=== PATIENT | female | born 1960 | race Caucasian/White ===

== ENCOUNTER 2025-04-21 11:36 | Inpatient (IN) | payer BC ==
[~2025-04-21] VITALS: Ht 170.2 cm; Wt 66.4 kg
[~2025-04-21 11:36] MED LIST: APIX5TAB3 PO
[2025-04-21] MEDS ORDERED: ASPI81TA52 PO (11:57)
[2025-04-21] MEDS: HYDROcodone/acetaminophen 5mg/325mg tablet PO ONE (12:05)
[2025-04-21] MEDS: ondansetron/PF 4mg/2ml inj IV ONE (12:14)
[2025-04-21] MEDS: morphine 4 MG/ML inj SYRINge IV ONE (12:15)
--- NOTE | 2025-04-21 12:54 | Physician Documentation ---
History of Present Illness ~ Chief Complaint: Mechanical Fall Stated Complaint: FALL Time Seen by MD: 11:49 Primary Medical Doctor: None Mode of Arrival: EMS HPI This is a 64-year-old female who presents for evaluation of potential traumatic injuries sustained a mechanical ground level fall. She was helping somebody to move furniture, has been making very small steps backwards, tripped over a lip on the sidewalk and fell on her left side. She reports an immediate onset sharp nonradiating pain in her left hip, worse with any range of motion and palpation, unable to bear weight. This never happened in the past. The particular palliating factors other than position of comfort. Did not attempt to treat her symptoms. Ice pack provided by the BLS crew does not really help. Denies head strike. Denies loss of consciousness. Denies any blood thinners. Denies any other symptoms such as chest pain or difficulty breathing. Tetanus within 5 Years?: No Medication Reconciliation Allergies: Coded Allergies: No Known Allergies (Unverified , 01/14/21) Scheduled Aspirin (Aspirin EC), 1 TAB PO DAILY, (Reported) Discontinued Medications Apixaban (Eliquis), 1 TAB PO Q12H Discontinued Reason: patient no longer taking Past Medical History Past Medical History: No Pertinent History Past Surgical History: noncontributory Alcohol Use: None Drug Use: none Review of Systems ROS 10 point review of systems was performed and unless noted above in HPI is negative for acute process/complaint. Physical Exam Vital Signs: Temperature: 97.8, Source: Oral, Heart Rate: 65, Respiratory Rate: 15, BP: 116/61, Pulse Oximetry: 100, Weight: 66.360 Physical Exam GENERAL: Awake, alert, oriented, GCS 15, no apparent distress, non-toxic appearing, answers questions, follows commands appropriately. Examined immediately upon arrival in bed 15. HEENT: Atraumatic, normocephalic, pupils equal, extraocular muscles intact, sclerae anicteric, mucus membranes moist, oropharynx is clear, no stridor. NECK: supple, full active range of motion, trachea midline, no thyromegaly, no lymphadenopathy, no JVD. CARDIOVASCULAR: regular rate/rhythm, no murmurs/gallops/rubs, Pulses are 2+ in all extremities and symmetric. Capillary refill less than 2 seconds. PULMONARY: Nonlabored, good air movement ,no respiratory distress, speaking in full sentences, clear to auscultation bilaterally, no wheezing, no ronchi, no rales, no accessory muscle use. GASTROINTESTINAL: Soft, non-tender, non-distended, normal active bowel sounds, no organomegaly, no pulsatile masses, no CVA tenderness. NEUROLOGIC: Lucid with normal mental status. Normal facial symmetry. Moves all extremities symmetrically and with purpose. No truncal ataxia. Speech is fluid without evidence of dysarthria or aphasia, no focal deficits appreciated. MUSCULOSKELETAL: There is full range of motion of all extremities. There is no joint pain or joint swelling or joint erythema. There is no muscle pain or tenderness or swelling. EXTREMITIES: warm, well-perfused, no cyanosis, no clubbing, no edema, no acute deformities. Skin: warm, dry, no rashes or lesions, no jaundice, no petechiae orpurpura. No ecchymosis. PSYCHIATRIC: Normal affect, normal insight, normal concentration. Focused exam: No obvious shortening of rotation, tender to palpation over the greater trochanter Progress Results/Orders Results/Orders Orders - HENRY DAVID DO Hip Unilateral 2 Views (04/21/25 11:49) Completed Orders - HENRY DAVID DO Hip Unilateral 2 Views (04/21/25 11:49) Hydrocodone/Apap 5/325mg Tab ([place] 5/32 (04/21/25 11:50) Morphine 4mg/Ml Inj. (Morphine Inj.) (04/21/25 12:10) Ondansetron Inj. (Zofran 4mg/2ml Vial) (04/21/25 12:10) Hydromorphone 1 Mg/Ml/Pf (Dilaudid Inj.) (04/21/25 14:30) Medications Received in ER Medications (Trade) Dose Ordered Sig/Romina Route PRN Reason Start Time Stop Time Status Last Admin Dose Admin (morphine inj.) 4 mg ONCE ONCE IV 04/21/25 12:10 04/21/25 12:11 DC 04/21/25 12:15 4 MG (Zofran 4mg/2ml vial) 4 mg ONCE ONCE IV 04/21/25 12:10 04/21/25 12:11 DC 04/21/25 12:14 4 MG (Dilaudid inj.) 1 mg ONCE ONCE IV 04/21/25 14:30 04/21/25 14:31 DC 04/21/25 14:42 1 MG Vital Signs 04/21/25 04/21/25 04/21/25 04/21/25 11:45 11:50 12:15 12:22 Temp 97.8 Pulse 70 65 Resp 15 15 15 15 B/P (MAP) 110/70 116/61 (79) Pulse Ox 97 100 04/21/25 04/21/25 04/21/25 13:14 13:17 14:42 Pulse 67 Resp 15 15 15 B/P (MAP) 113/62 (79) Pulse Ox 95 Medical Decision Making Findings Facility Status: ED Holds, RME process The plan was discussed with the patient, who demonstrates clear understanding of the plan and is in agreement with the plan unless otherwise noted in the chart. All questions have been answered, all concerns were addressed unless otherwise documented. I was available throughout their ED stay for frequent reassessment and questions. Differential Diagnoses (considered and possible or likely): [Ground level fall, acute traumatic pain, left hip contusion versus fracture versus dislocation] ??Differential Diagnoses (considered and unlikely, not requiring evaluation currently): [No evidence of neurovascular injury.] MDM Data Please see HPI for the following: Independent Historians and external Records Review. Historian: [Patient] Independent Historians: ?[EMS] Medication Management: [Reviewed medication list] Social History and determinants: [Reviewed] Please see the body of the note for the following: Any independent interpretations of ECG, imaging studies. All vitals signs/haemodynamics, ordered tests were independently reviewed and interpreted by myself. Nursing triage complaint and vitals reviewed, additional nursing notes were reviewed as available and I agree unless otherwise noted or documented in contradiction in the chart Vital Signs: Independently reviewed Labs: Independently interpreted Imaging: Independently interpreted Old Medical Records: Independently reviewed, see HPI for relevant summary and information Pulse Oximetry: [100%] interpreted as [normal on room air] by me [Allergist/Immunologist Physician: [Regular Rate, Regular rhythm, no ectopy, NSR] reviewed and interpreted by me] Additionally notably showing: [X-ray shows subtrochanteric fracture on the left side.] Tests considered but not ordered include: [Initially did not considerably work, however given the fracture we will obtain some preop labs and EKG] Social Determinants of Health Impact: [place] [facility] [place] to healthcare due to below par ratio of patient to medical providers. [] Comorbid Conditions Impacting Present Evaluation and Care/Treatment: [None] Management Discussions with other Healthcare Providers: [Dr. Zuluaga, he will see patient Hospitalist regarding admission] Treatment and Disposition Medication Management (Given or considered): [Pain management]. See EMR for details Consideration for Hospitalization/Escalation/Deescalation of Care: Admission for observation has been considered, and is necessary for further management of her left hip fracture ?ED Course:?[Eventually the pain was well-controlled.] ?Shared decision making:?[] Code status:?FULL Please see the full Electronic Medical Record for full details of nursing documentation, medications list, other records of complete past medical history and conditions, vital signs, laboratory studies, and any radiologic study interpretations by radiologists. Portions of this note were completed using [employer] dictation software and as a result there may exist minor errors in spelling. I have reviewed elements of past family and social history and agree as included in note. Departure Disposition: ADMITTED INPATIENT Admitted to Inpatient Unit: to hospitalist Impression: Primary Impression: Ground-level fall Additional Impressions: Acute traumatic pain Closed left hip fracture Condition: Improved Referrals: NO PRIMARY CARE PROVIDER (PCP) Signature Scribe Signature: No scribe Attestation: This note accurately reflects clinical decisions, work performed by myself, DO FRANKIE Orozco NICHOLAS M DO Apr 21, 2025 12:54
--- NOTE | 2025-04-21 13:28 | RADIOLOGY REPORT ---
CLINICAL INDICATION: fall, L hip pain TECHNIQUE: DI HIP UNILATERAL 2 VIEWS Comparison: None FINDINGS/IMPRESSION: : Displaced and angulated fracture of the proximal left subtrochanteric femur. There is possible extens ion of fracture into the lesser trochanter. Moderate degenerative changes of the right hip.
--- NOTE | 2025-04-21 15:29 | ELECTROCARDIOGRAPH REPORT ---
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 Tutu Almazan Measurements Intervals [place] Rate: 51 P: 61 OR: 144 QRS: 33 QRSD: 89 T: 53 QT: 453 QTc: 418 Interpretive Statements Sinus bradycardia Probable left atrial enlargement Anteroseptal infarct, age indeterminate Electronically Signed On 04-21-2025 18:25:[address] Tutu Almazan Please click the below link to view image of tracing.
[2025-04-21] MEDS: ringers solution, lacted 1,000 ML IV ONE (15:51)
[2025-04-21 15:55] LABS: MEAN PLATELET VOLUME 7.8 FL (7.4-10.4); RED CELL DISTRIBUTION WIDTH 12.6 % (11.5-14.5)
[2025-04-21 16:05] LABS: APTT 25 SECONDS (22-32); INR 1.0 INR
[2025-04-21 16:06] LABS: CREATININE 0.68 MG/DL (0.40-0.90); TOTAL CARBON DIOXIDE 27.4 MMOL/L (24-32); eCRCL 81 ML/MIN; eGFR 87 ML/MIN
[2025-04-21] MEDS: ringers solution, lacted 1,000 ML IV SCH (16:15)
[2025-04-21] MEDS ORDERED: mag hydrox/Alum hydrox/simeth 30ml oral suspension PO PRN (16:20)
[2025-04-21] MEDS ORDERED: potassium Cl 20 mEq SR tablet PO PRN ×2 (16:20)
[2025-04-21] MEDS ORDERED: magnesium sulf-water 2g/50mL 50 ML IV PRN (16:20)
[2025-04-21] MEDS ORDERED: magnesium Cl slow-release 64mg tablet PO PRN (16:20)
[2025-04-21] MEDS ORDERED: HYDROcodone/acetaminophen 5mg/325mg tablet PO PRN (16:20)
[2025-04-21] MEDS ORDERED: potassium Cl 40MEQ/1/2NS 520ml 520 ML IV PRN (16:20)
[2025-04-21] MEDS ORDERED: magnesium sulf-water 4G/100mL 100 ML IV PRN (16:20)
[2025-04-21] MEDS ORDERED: magnesium hydroxide 30ml (MOM) UD suspension PO PRN (16:20)
--- NOTE | 2025-04-21 16:35 | HISTORY AND PHYSICAL-Residence ---
History & Physical Providers to Resident Creating Document: NAHID MECRADO RES ~ History of Present Illness Primary Medical Doctor: None Reason for Admit\Complaint: Mechanical fall/femur fracture History of Present Illness This 64-year-old female presented to the ER with a chief concern of left hip pain after ground level fall. She was helping somebody to move furniture, stepped backwards and tripped and fell and a side. Denies hitting her head to the floor or losing consciousness. She could not stand up by herself for for the fall and so called the EMS. Denies any nausea, abdominal pain, vomiting, chest pain, shortness of breath, palpitations, lightheadedness, dysuria or any other concerns. Denies getting a bone density scan done in the past and does not take any vitamin-D or calcium supplementation at home. Did not see any doctor for the last 30 years and does not take any medications at home. Allergies: Coded Allergies: No Known Allergies (Unverified , 01/14/21) Home Medications Home Medications Active Reported Aspirin EC (Aspirin) 81 Mg Tablet.dr 1 Tab PO DAILY Past Medical History Past Medical History Denies any past medical history. Did not see any doctor for the last 30 years. Does not take any medications at home Past Surgical History Surgical History Comment Left elbow orthopedic surgeries as a child, tonsillectomy Past Social History Social History Comment Has smoked one pack of cigarettes per day for few years in the last cigarette was about 10 years back. Now, vapes nicotine. Denies drinking alcohol or abusing any other recreational drugs Alcohol Use: None Drug Use: None ROS ROS Constitutional: No fever, chills, dizziness, weakness, weight gain or loss Eyes: No pain, erythema, discharge, blurring of vision ENT: No sore throat, epistaxis, tinnitus Cardiovascular: No chest pain, chest pressure, chest discomfort, palpitations, syncope, lower extremity edema, paroxysmal nocturnal dyspnea Respiratory: No shortness of breath, cough, hemoptysis Gastrointestinal: Normal appetite. No nausea, vomiting, diarrhea, constipation, hematemesis, abdominal pain, bloating, melena or fresh blood Genitourinary: No frequency, urgency, nocturia, hematuria or dysuria Musculoskeletal: Pain and left hip till the knee Integumentary: No change in skin, hair, nails. No swelling, bruising, abrasions Neurologic: No headache, neck pain, numbness or tingling of the extremities, weakness Psychiatric: No delusions, depression, loss of interest in normal activity or change in sleep pattern, hallucinations, suicidal ideations Endocrine: No fatigue, weakness, polydipsia, polyuria, change in appetite, heat or cold intolerance, sweating, dry skin Hematological: No bleeding, petechiae, bruising Allergies: No asthma or urticaria Exam Vitals: Vital Signs Date Time Temp Pulse Resp B/P (MAP) Pulse Ox O2 Delivery O2 Flow Rate FiO2 04/21/25 14:42 15 04/21/25 13:14 67 113/62 (79) 95 04/21/25 11:45 97.8 General: Alert and oriented x4 HEENT: Normocephalic and atraumatic. Pupils equal round reactive to light and accommodation. Extraocular movements intact. Oral and nasal mucosa moist Neck: Trachea is in midline. No masses or JVD Chest: Bilateral normal breath sounds. No crackles, rhonchi or wheezes Cardiovascular: Regular rate and rhythm. S1-S2 normal. No rubs or murmurs Abdomen: Soft, nontender nondistended. Bowel sounds present Extremities: Tenderness in the left hip region. No cyanosis, clubbing or edema Central Nervous System: No gross sensory or motor deficits. CN II to XII grossly intact. Could not move left lower extremity due to significant left hip pain. Bilateral pedal pulse 2 + Skin: Warm and dry Diagnostic Data Last Recorded Lab Results: 04/21/25 1542 04/21/25 1542 Diagnostic Data: Laboratory Tests Test 04/21/25 15:42 Prothrombin Time 10.6 SECONDS (9.0-12.0) INR International Normalized Ratio 1.0 INR Activated Partial Thromboplast Time 25 SECONDS (22-32) Coagulation Comments Advance Care Planning Advanced Care plannin - 30 Minutes Additional Plan Mechanical fall Left subtrochanteric fracture-displaced Possible extension of fracture into the lesser trochanter Hip x-ray showed Displaced and angulated fracture of the proximal left subtrochanteric femur. There is possible extension of fracture into the lesser trochanter. Her physician consulted Dr. Zuluaga. Per nurse, patient going to the OR today NPO now Elevated WBC-14.3-likely reactive Pending UA and urine tox Chest x-ray ordered EKG showed sinus bradycardia without any significant ST or T-wave changes. Q- waves in V1 and V2 Heart rate in 60s to 70s and sometimes in 50s Calcium 8.3. Vitamin-D levels ordered Strongly recommended outpatient DEXA scan Will start calcium and vitamin-D supplementation from tomorrow as she is NPO now for surgery Received 4 mg morphine IV once, Zofran 4 mg IV once, Dilaudid 1 mg IV once in the ER Continue morphine and [place] for pain Was started on Ringer's lactate in the ER. Continue Ringer's lactate at 75 cc/hour Normocytic normochromic anemia HGB 11.7 Monitor H&H daily Nicotine abuse Consider nicotine patch if needed after surgery DVT prophylaxis: SCDs. Start Lovenox 12 -24 hours after surgery as per surgeon's recommendations Diet: NPO now for surgery Nahid Mercado MD Internal Medicine Resident, PGY 3 Date of Service: Apr 21, 2025 Billing Provider: CHITRA MIRANDA MD Common Visit Codes: 16112-ZTOYWDI INP/OBS CARE (HIGH) Secondary Visit Codes: 55211-ROCVVLRW CARE PLAN 30 MINUTES NAHID MERCADO RES Apr 21, 2025 16:35 CHITRA MIRANDA MD Apr 21, 2025 20:33
[2025-04-21] MEDS: ceFAZolin 2gm/dext,iso 50mL 50 ML IV ONE (17:04)
[2025-04-21] MEDS: ondansetron/PF 4mg/2ml inj IV PRN (17:45)
[2025-04-21 18:03] VITALS: BP 134/83; PULSE 75; RESP 16; TEMP 97.5; O2SAT 94
--- NOTE | 2025-04-21 19:10 | RADIOLOGY REPORT ---
EXAM: DI CHEST,SINGLE VIEW TECHNIQUE: Single frontal chest radiograph CLINICAL HISTORY: fall COMPARISON: None Findings/Impression: Frontal chest radiograph demonstrates no acute osseous or superficial soft tissue abnormalities. The trachea is midline. The cardiac silhouette and mediastinum are within normal limits. No pneumothorax, pleural effusions, or consolidations.
[2025-04-21] MEDS: ceFAZolin/D5W- 1GM premix 50 ML IV ONE (19:33)
[2025-04-21 20:00] VITALS: RESP 16; O2SAT 94
[2025-04-21] MEDS: K and/or MAG REPLACEMENT MC SCH (20:00)
[2025-04-21] MEDS: metoclopramide 5 mg/ml inj IV PRN (21:36)
[2025-04-21 22:00] VITALS: BP 148/73; PULSE 60; RESP 16; TEMP 97.8; O2SAT 94
[2025-04-22] VITALS (14 sets, daily range): BP systolic 110–150; BP diastolic 65–85; PULSE 54–82; RESP 12–25; TEMP 97.6–98.2; O2SAT 92–100
[2025-04-22 05:59] LABS: MEAN PLATELET VOLUME 8.2 FL (7.4-10.4); RED CELL DISTRIBUTION WIDTH 12.6 % (11.5-14.5)
[2025-04-22 06:42] LABS: CHOL/HDL RATIO 2.5 (0.00-4.99); CREATININE 0.78 MG/DL (0.40-0.90); LDL CHOLESTEROL 97 MG/DL (50-100); PHOSPHORUS 3.7 MG/DL (2.3-4.5); TOTAL CARBON DIOXIDE 27.2 MMOL/L (24-32); eCRCL 71 ML/MIN; eGFR 74 ML/MIN
[2025-04-22] MEDS: lactose-reduced food (Ensure Enlive) - 237ml bottle PO SCH (08:00)
[2025-04-22] MEDS: ceFAZolin/D5W- 1GM premix 50 ML IV ONE (08:03)
[2025-04-22] MEDS ORDERED: cloNIDine hcl/PF 100mcg/ml inj ONE (08:40)
[2025-04-22] MEDS ORDERED: acetaminophen 1,000mg/100ml IV 100 ML IV PRN (08:50)
[2025-04-22] MEDS ORDERED: ondansetron/PF 4mg/2ml inj IV PRN (08:50)
[2025-04-22] MEDS ORDERED: HYDROmorphone/PF 0.2 MG/ML SYRINGE IV PRN ×2 (08:50)
[2025-04-22] MEDS ORDERED: hydrALAZINE 20mg/ml inj. IV PRN (08:50)
[2025-04-22] MEDS ORDERED: labetalol 20mg/4ml (5mg/ml) syringe IV PRN (08:50)
[2025-04-22] MEDS ORDERED: morphine 4 MG/ML inj SYRINge IV PRN (08:50)
[2025-04-22] MEDS: ringers solution, lacted 1,000 ML IV SCH (08:50)
[2025-04-22] MEDS ORDERED: fentaNYL/PF 50MCG/1 ML 2ML syringe ONE (08:58)
[2025-04-22] MEDS ORDERED: midazolam 1 mg/ML 2ml injection ONE (09:28)
[2025-04-22] MEDS ORDERED: ondansetron/PF 4mg/2ml inj ONE (09:29)
[2025-04-22] MEDS ORDERED: propofol inj 20 ML IV ONE (09:29)
[2025-04-22] MEDS ORDERED: ROPIVAcaine 0.5% (5mg/ml) 30ml vial ONE (09:29)
[2025-04-22] MEDS ORDERED: LIDOcaine 2% (20mg/ml) 5ml vial ONE (09:29)
[2025-04-22] MEDS ORDERED: dexamethasone sod phosphate 4mg/ml inj. ONE (09:29)
[2025-04-22] MEDS ORDERED: 0.9 % SODIUM CHLORIDE 10 ML VIAL ONE (09:38)
[2025-04-22] MEDS ORDERED: ePHEDrine 50MG/ML INJ. ONE (09:38)
[2025-04-22] MEDS ORDERED: BUPIVAcaine 2.5mg/ml inj 50ml vial (contains preservative) ONE (10:29)
[2025-04-22] MEDS: BUPIVAcaine/PF 2.5 mg/ml (0.25%) 30ml vial IJ ONE (10:32)
[2025-04-22] MEDS ORDERED: morphine 4 MG/ML inj SYRINge ONE (10:42)
--- NOTE | 2025-04-22 11:14 | CONSULTATION REPORT ---
History of Present Illness Providers to CC ~ Reason for Admit\Admit Dx: Mechanical fall/femur fracture Refering MD: None History of Present Illness History of present illness: 64-year-old female who was helping her daughter unload furniture into a storage unit when she tripped over a of the cement edge causing her to fall back directly onto her left hip was unable to walk afterwards and presented to the emergency room with severe left hip pain. Evaluation revealed a intertrochanteric two part hip fracture. There was no closed head injury or other significant pain complaints. She was admitted to the hospitalist service for pain management and preparation for surgical stabilization of her left intertrochanteric hip fracture. I evaluated this patient on 04/21/2025 approximately 6:00 p.m. patient was comfortable in bed and denied any other specific injury other than her left hip. She was in minimal pain with current pain medications. She was able to demonstrate good function to her left foot and ankle. She denied upper extremity or other orthopedic injuries. Past medical/surgical history: This is as per the admitting history and physical. Examination: Patient has a slight external rotation deformity to her left hip and slight shortening to her left hip/lower extremity. There was no deformity to the skin or disruption of the skin. No ecchymosis is evident. Left knee exam although it was limited due to hip pain showed no acute trauma to the knee no effusion no disruption of the skin. Good distal pulses to the left lower extremity good capillary refill full extension and flexion of the toes and dorsiflexion and ankle range of motion. The balance of the orthopedic examination was within normal limits. X-rays: These reveal a two part intertrochanteric hip fracture with rotational deformity and varus deformity. Moderate amount of osteopenia. Assessment: Intertrochanteric hip fracture unstable. Plan: The patient is scheduled as agreed to proceed with surgical stabilization using a hip nail was sliding compression screw I discussed this with her obtained informed consent with her as well as her daughter. I answered all their questions discussed the indications risks benefits potential complications and limitations of the procedure. She has a schedule for surgery today. Please see operative report Allergies: Coded Allergies: No Known Allergies (Unverified , 01/14/21) Home Medications Home Medications Active Reported Aspirin EC (Aspirin) 81 Mg Tablet. 1 Tab PO DAILY Physical Exam Last Vital Signs Recorded: Temperature: 97.6, Source: Temporal, Heart Rate: 66, Respiratory Rate: 16, BP: 138/78, Pulse Oximetry: 99, Weight: 66.360 Results Diagram Lab Result Diagram: 04/22/2544104/22/25 044 JENNIFER SIDHU MD Apr 22, 2025 11:14
--- NOTE | 2025-04-22 11:22 | OPERATIVE REPORT ---
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 100 mm lag compression screw. 36 mm cortical distal dynamic screw for anti rotation. Estimated Blood Loss: A proximally 100 cc Specimen Removed: None Description of Procedure: This patient was taken to the operating room on an urgent basis to stabilize her left intertrochanteric hip fracture. Informed consents were obtained and I signed her left hip. She was given prophylactic intravenous antibiotics once in the operating room she was given a general anesthetic. She was placed in the [place] table in the hip was reduced under traction and fluoroscopy with all operative personnel protected with a lead apron. Once stabilized was skin traction the hip was prepped and draped in usual sterile orthopaedic fashion a surgical time-out was taken per protocol and the case was begun. Ioban skin dressing vertical isolation drape was used.. Three incisions were m cheryl laterally starting with the more proximal incision of the measuring approximately 3-4 inches proximal to the greater trochanter tensor fascia was incised as well hemostasis was achieved with the electrocautery dissection was then carried through the musculature to the point of the greater trochanter using fluoroscopy of the guide pin was placed at tip of the finger could trocha nter midway between the anterior and posterior cortex. Advancing the pin under fluoroscopic guidance into the central aspect of the medullary canal of the femur was accomplished without difficulty evaluating AP oblique and lateral views to ensure proper location. The fracture was anatomically reduced with traction. A starting guide drill was used under fluoroscopy and then the 13 mm x 180 degree length short nail with 130 degree angle for the compression screw was placed into the hip again under fluoroscopy. Using the external alignment roderick that was attached to the nail and compression screw was placed into the slightly posterior to the central central aspect of the femoral head this measured 100 and cm staying within the confines of the femoral head for excellent stability. Compression was applied to the compression screw to close the fracture and compress the fracture site. The locking mechanism for anti-rotational was used. Distal locking screw was used and placed into the distal aspect of the nail . C-arm fluoroscopy was used to confirm positioning of the nail through all positions AP lateral and oblique positions. Copious antibiotic irrigation was used at all incisions with normal saline. Normal saline with Ancef 1 gram/liter. Closure was accomplished with 0. Vicryl for the fascia and 2-0 Vicryl for the subcutaneous tissue the skin was closed with skin aaron and sea led with Dermabond skin glue. Silk skin dressing and island dressings were applied to all three incisions. Patient's lower extremities were examined to make sure the had both equal internal and external rotation. There were also checked for equal leg lengths. Good distal pulses were also checked with good capillary refill to the left foot. Patient was now transferred to the [facility] off of the [place] table. Patient was placed in the recovery room in stable condition there were no apparent perioperative complications Counts repoted as correct: Yes JENNIFER SIDHU MD Apr 22, 2025 11:22
--- NOTE | 2025-04-22 15:17 | PROGRESS NOTE- Residence ---
Progress Note - Resident Providers to CC Resident Creating Document: NAHID MERCADO RES ~ Antibiotic Timeout Antibiotic Ordered?: No Subjective Patient seen and examined today. Today, Dr. Zuluaga performed surgery for unstable left intertrochanteric femur fracture: Surgical stabilization with open reduction internal fixation using a left sliding hip compression nail. Patient is comfortably resting in the bed. He is not in any acute distress. No new complaints Objective Vital Signs Date Time Temp Pulse Resp B/P (MAP) Pulse Ox O2 Delivery O2 Flow Rate FiO2 04/22/25 11:55 97.5 66 15 131/77 (95) 98 Nasal Cannula 2.0 Result Diagram: 04/22/2544104/22/252 General: Alert and oriented x 4 HEENT: Normocephalic and atraumatic. Pupils equal round and reactive to light and accommodation. Extraocular movements intact. Oral and nasal mucosa moist Neck: Trachea is in midline. No masses or JVD Lungs: Bilateral normal breath sounds. No crackles, rhonchi or wheezes Heart: Regular rate and rhythm. S1-S2 normal. No rubs or murmurs Abdomen: Soft, nontender and nondistended. 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 CN II to XII grossly intact. Extremities: No cyanosis, clubbing or edema. Dressing in place on left thigh at the surgical site Skin: Warm and dry Coagulation Studies Laboratory Tests Test 04/21/25 15:42 Prothrombin Time 10.6 SECONDS (9.0-12.0) INR International Normalized Ratio 1.0 INR Activated Partial Thromboplast Time 25 SECONDS (22-32) Coagulation Comments Assessment Assessment This 64-year-old female with no past medical history or home medications came in with mechanical fall and left hip pain. Admitted for the management of left femur fracture. Plan Plan Mechanical fall Left intertrochanteric fracture-unstable Procedure performed by Dr. Zuluaga on 04/22/2025: Surgical stabilization with open reduction internal fixation using a left sliding hip compression nail Hip x-ray showed Displaced and angulated fracture of the proximal left subtrochanteric femur. There is possible extension of fracture into the lesser trochanter. Her physician consulted Dr. Zuluaga. Per nurse, patient going to the OR today NPO now Elevated WBC-14.3-likely reactive Pending UA and urine tox Chest x-ray ordered EKG showed sinus bradycardia without any significant ST or T-wave changes. Q- waves in V1 and V2 Heart rate in 60s to 70s and sometimes in 50s Calcium 8.3. Vitamin-D levels ordered Strongly recommended outpatient DEXA scan Will start calcium and vitamin-D supplementation from tomorrow as she is NPO now for surgery Received 4 mg morphine IV once, Zofran 4 mg IV once, Dilaudid 1 mg IV once in the ER Continue morphine and [place] for pain Was started on Ringer's lactate in the ER. Continue Ringer's lactate at 75 cc/hour 04/22/2025: Surgery done today. Patient not in acute distress. Continue pain management with morphine and [place]. Will discontinue IV fluids later today. Started regular diet. PT evaluation as per surgeon's recommendations. TSH and free T4 ordered. Vitamin-D levels pending. Requires outpatient Lexiscan. Strongly recommended to quit nicotine abuse Normocytic normochromic anemia HGB 11.7 Monitor H&H daily Nicotine abuse Consider nicotine patch if needed DVT prophylaxis: Lovenox 40 mg subcutaneous daily 12 -24 hours after surgery Diet: Regular diet Nahid Mercado MD Internal Medicine Resident, PGY 3 Date of Service: Apr 22, 2025 Billing Provider: BRIAN ENRIQUEZ MD Common Visit Codes: [id number] INP/OBS CARE(HIGH) NAHID MERCADO RES Apr 22, 2025 15:17 BRIAN ENRIQUEZ MD Apr 22, 2025 18:34
[2025-04-22 17:55] LABS: LEUKOCYTE ESTERASE ,URINE NEGATIVE (Neg); NITRITES, URINE NEGATIVE (Neg); OCCULT BLOOD,URINE SMALL (Neg)
[2025-04-22 17:56] LABS: UA COLLECTION TYPE VOIDED
[2025-04-22 18:05] LABS: AMORPHOUS URATES 3+; MUCUS STRANDS NONE SEEN /LPF (Neg); SQUAMOUS EPITHELIAL CELL,UR FEW /LPF (FEW)
[2025-04-22] MEDS: HYDROcodone/acetaminophen 10/325mg tab PO PRN (20:59)
[2025-04-22] MEDS: ceFAZolin/D5W- 1GM premix 50 ML IV SCH (21:14)
[2025-04-23 03:00] VITALS: BP 109/61; PULSE 86; RESP 15; TEMP 98.1; O2SAT 94
[2025-04-23 05:44] LABS: MEAN PLATELET VOLUME 7.9 FL (7.4-10.4); RED CELL DISTRIBUTION WIDTH 12.8 % (11.5-14.5)
[2025-04-23 06:00] VITALS: BP 119/63; PULSE 71; RESP 16; TEMP 98.4; O2SAT 94
[2025-04-23 06:29] LABS: CREATININE 0.63 MG/DL (0.40-0.90); PHOSPHORUS 2.5 MG/DL (2.3-4.5); TOTAL CARBON DIOXIDE 29.8 MMOL/L (24-32); eCRCL 88 ML/MIN; eGFR > 90 ML/MIN
[2025-04-23 10:00] VITALS: BP 113/64; PULSE 80; RESP 14; TEMP 98.6; O2SAT 98
--- NOTE | 2025-04-23 16:55 | PROGRESS NOTE- Residence ---
Progress Note - Resident Providers to CC Resident Creating Document: NAHID MERCADO RES ~ Antibiotic Timeout Antibiotic Ordered?: No Subjective Patient seen and examined today. Complains of myct-ol-euxtmdod pain at the surgical site. Denies any new concerns. Did not have a bowel movement but is passing gas. Objective Vital Signs Date Time Temp Pulse Resp B/P (MAP) Pulse Ox O2 Delivery O2 Flow Rate FiO2 04/23/25 10:00 98.6 80 14 113/64 (80) 98 Room Air 04/23/25 05:30 94 04/22/25 20:00 2.0 Result Diagram: 04/23/25 0509 04/23/25 0509 General: Alert and oriented x 4 HEENT: Normocephalic and atraumatic. Pupils equal round and reactive to light and accommodation. Extraocular movements intact. Oral and nasal mucosa moist Neck: Trachea is in midline. No masses or JVD Lungs: Bilateral normal breath sounds. No crackles, rhonchi or wheezes Heart: Regular rate and rhythm. S1-S2 normal. No rubs or murmurs Abdomen: Soft, nontender and nondistended. 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 CN II to XII grossly intact. Extremities: No cyanosis, clubbing or edema. Dressing in place on left thigh at the surgical site Skin: Warm and dry Coagulation Studies Laboratory Tests Test 04/21/25 15:42 Prothrombin Time 10.6 SECONDS (9.0-12.0) INR International Normalized Ratio 1.0 INR Activated Partial Thromboplast Time 25 SECONDS (22-32) Coagulation Comments Assessment Assessment This 64-year-old female with no past medical history or home medications came in with mechanical fall and left hip pain. Admitted for the management of left femur fracture. Plan Plan Mechanical fall Left intertrochanteric fracture-unstable Procedure performed by Dr. Zuluaga on 04/22/2025: Surgical stabilization with open reduction internal fixation using a left sliding hip compression nail Hip x-ray showed Displaced and angulated fracture of the proximal left subtrochanteric femur. There is possible extension of fracture into the lesser trochanter. Her physician consulted Dr. Zuluaga. Per nurse, patient going to the OR today NPO now Elevated WBC-14.3-likely reactive Pending UA and urine tox Chest x-ray ordered EKG showed sinus bradycardia without any significant ST or T-wave changes. Q- waves in V1 and V2 Heart rate in 60s to 70s and sometimes in 50s Calcium 8.3. Vitamin-D levels ordered Strongly recommended outpatient DEXA scan Will start calcium and vitamin-D supplementation from tomorrow as she is NPO now for surgery Received 4 mg morphine IV once, Zofran 4 mg IV once, Dilaudid 1 mg IV once in the ER Continue morphine and [place] for pain Was started on Ringer's lactate in the ER. Continue Ringer's lactate at 75 cc/hour 04/22/2025: Surgery done today. Patient not in acute distress. Continue pain management with morphine and [place]. Will discontinue IV fluids later today. Started regular diet. PT evaluation as per surgeon's recommendations. TSH and free T4 ordered. Vitamin-D levels pending. Requires outpatient Lexiscan. Strongly recommended to quit nicotine abuse 04/23/2025: Continue pain management. Discontinued IV fluids. PT recommended home independent. Possible discharge tomorrow in a.m.. TSH within normal limits but free T4 slightly elevated-1.6. Denies any hyperthyroidism symptoms like weight loss, dry skin, palpitations or any other concerns. Pending vitamin-D level. Corrected calcium within normal limit. Start DVT prophylaxis tonight- Lovenox 40 mg subcutaneous daily. Receiving senna one tab daily. Started Colace 100 mg p.o. b.i.d. Normocytic normochromic anemia HGB 11.7 Monitor H&H daily Nicotine abuse Consider nicotine patch if needed DVT prophylaxis: Lovenox 40 mg subcutaneous daily 12 -24 hours after surgery Diet: Regular diet Disposition: Discharge in a.m.. Requires rechecking TSH and free T4 in 3 months. Requires outpatient DEXA scan. Continue DVT prophylaxis at the time of discharge Nahid Mercado MD Internal Medicine Resident, PGY 3 Date of Service: Apr 23, 2025 Billing Provider: BRIAN ENRIQUEZ MD Common Visit Codes: [id number] INP/OBS CARE(HIGH) NAHID MERCADO RES Apr 23, 2025 16:55 BRIAN ENRIQUEZ MD Apr 23, 2025 19:23
[2025-04-23 18:00] VITALS: BP 111/58; PULSE 84; RESP 14; TEMP 98.6; O2SAT 95
[2025-04-23] MEDS: docusate sod 100mg capsule PO SCH (20:00)
[2025-04-23] MEDS: enoxaparin 40mg/0.4ml syringe SUBCUT SCH (20:13)
[2025-04-23 22:00] VITALS: BP 115/67; PULSE 91; RESP 16; TEMP 97.3; O2SAT 96
[2025-04-24 05:41] LABS: MEAN PLATELET VOLUME 8.1 FL (7.4-10.4); RED CELL DISTRIBUTION WIDTH 12.8 % (11.5-14.5)
[2025-04-24 05:52] LABS: CREATININE 0.56 MG/DL (0.40-0.90); PHOSPHORUS 2.8 MG/DL (2.3-4.5); TOTAL CARBON DIOXIDE 28.0 MMOL/L (24-32); eCRCL 99 ML/MIN; eGFR > 90 ML/MIN
[2025-04-24 06:00] VITALS: BP 128/72; PULSE 72; RESP 15; TEMP 98; O2SAT 96
[2025-04-24 08:00] VITALS: RESP 16
[2025-04-24 08:18] LABS: VITAMIN D, 25-HYDROXY 24.7 ng/mL (30.0-100.0)
[2025-04-24 10:20] VITALS: BP 108/70; PULSE 88; RESP 16; TEMP 99; O2SAT 96
[2025-04-24] MEDS ORDERED: PANT-47 PO (10:45)
[2025-04-24] MEDS ORDERED: ASPI-1 PO (10:45)
[2025-04-24 11:17] LABS: VITAMIN D, 1,25 DIHYDROXY 58.5 pg/mL (24.8-81.5)
[2025-04-24 12:26] VITALS: RESP 18
[2025-04-24] MEDS ORDERED: ASPI81TA52 PO (12:33)
[2025-04-24] MEDS ORDERED: HYDR-3965 PO (12:37)
[2025-04-24] MEDS ORDERED: CHOL10006 PO (12:42)
--- NOTE | 2025-04-24 14:18 | DISCHARGE SUMMARY-Residence ---
Discharge Summary Providers to CC Resident Creating Document: NAHID MERCADO RES ~ Discharge Summary Admission Diagnosis: femure fracture two part intertrochanteric hip fracture unstable left hip Hospital Course DATE OF ADMISSION: 04/21/2025 DATE OF DISCHARGE: 04/24/2025 In HPI: This 64-year-old female presented to the ER with a chief concern of left hip pain after ground level fall. She was helping somebody to move furniture, stepped backwards and tripped and fell and a side. Denies hitting her head to the floor or losing consciousness. She could not stand up by herself for for the fall and so called the EMS. Denies any nausea, abdominal pain, vomiting, chest pain, shortness of breath, palpitations, lightheadedness, dysuria or any other concerns. Denies getting a bone density scan done in the past and does not take any vitamin-D or calcium supplementation at home. Did not see any doctor for the last 30 years and does not take any medications at home. During her hospital stay, Dr. Zuluaga performed surgical stabilization with a open reduction internal fixation using a left sliding hip compression nail on 04/22/2025. She remained stable. Pain controlled with pain medications. PT recommended home independent. She had a bowel movement yesterday. Today, she is stable for discharge back home. General: Alert and oriented x 4 HEENT: Normocephalic and atraumatic. Pupils equal round and reactive to light and accommodation. Extraocular movements intact. Oral and nasal mucosa moist Neck: Trachea is in midline. No masses or JVD Lungs: Bilateral normal breath sounds. No crackles, rhonchi or wheezes Heart: Regular rate and rhythm. S1-S2 normal. No rubs or murmurs Abdomen: Soft, nontender and nondistended. 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 CN II to XII grossly intact. Extremities: No cyanosis, clubbing or edema. Dressing in place on left thigh at the surgical site Skin: Warm and dry Discharge instructions: Please continue to take aspirin 162 mg once daily for six weeks and also Proton ix 40 mg once daily. Please follow up with the PCP and the surgeon-Dr. Zuluaga within 1-2 weeks after discharge. Please get your thyroid panel checked within 2-3 months after discharge. Also get a bone density scan done out patient. Please take vitamin D supplementation and follow up with your pcp Please provide her with fall precautions. Nahid eMrcado MD Internal Medicine Resident, PGY 3 Discharge Diagnosis\Comment: Left intertrochanteric fracture-unstable Procedure performed by Dr. Zuluaga on 04/22/2025: Surgical stabilization with open reduction internal fixation using a left sliding hip compression nail Operations\Procedures: Procedure performed by Dr. Zuluaga on 04/22/2025: Surgical stabilization with open reduction internal fixation using a left sliding hip compression nail Consultants: Dr. Zuluaga-orthopedic surgeon Complications: None Condition on DC: Stable New Medications: Cholecalciferol (Vitamin D) 1,000 Unit Capsule 1 CAP PO DAILY for 30 Days, #30 CAP 0 Refills Hydrocodone Bit/Acetaminophen 5/325 MG ([place] 5/325 MG) 5 Mg/325 Mg Tablet 1 TAB PO Q6H PRN for moderate or severe pain 4-10 MDD 4 for 7 Days, #28 TAB Pantoprazole Sodium (PROTONIX tablet) 40 Mg Tablet.dr 40 MG PO DAILY for 60 Days, #60 TAB.SR Changed Medications: Aspirin (Aspirin EC) 81 Mg Tablet. 2 TAB PO DAILY for 42 Days, #84 TAB (Changed from: 1 TAB) Discharge Summary: As above *Problems/Diagnosis: (1) Fracture, intertrochanteric, left femur Total Time Spent on D/C: > 30 Minutes Date of Service: Apr 24, 2025 Billing Provider: BRIAN ENRIQUEZ MD Common Visit Codes: [id number] DISCH DAY >30min NAHID MERCADO RES Apr 24, 2025 14:18 BRIAN ENRIQUEZ MD Apr 24, 2025 18:44
== END 2025-04-24 13:25 | disposition home or self-care (01) | DRG 482 ==
LOC: ER 11:37 → ED HOLD 15:49 → ORTHO 4S 17:50
PROVIDERS: ADMIT Internal Medicine; ATTEND Internal Medicine
PROC: 0QS706Z Reposition Left Upper Femur with Intramedullary Internal Fixation Device, Open Approach (ICD-10-PCS; principal; 2025-04-22 08:51)
DX: S72.142A Displaced intertrochanteric fracture of left femur, initial encounter for closed fracture (principal); W18.39XA Other fall on same level, initial encounter; G89.11 Acute pain due to trauma; D64.9 Anemia, unspecified; Y93.89 Activity, other specified; Y92.89 Other specified places as the place of occurrence of the external cause; Y99.8 Other external cause status
CPT/HCPCS: 96374; 96375; 99285; Z7506; Z7508; 36415; 71045; 73502; 76000; 80053; 80061; 81001; 82306; 82652; 82948; 83036; 83735; 84100; 84439; 84443; 85025; 85610; 85730; 86885; 86900; 86901; 87081; 93005; 97110; 97116; 97162; A4615; A4618; A6253; A7000; C1713; G0378; J0690; J0735; J1100; J1171; J1650; J2003; J2250; J2270; J2405; J2704; J2765; J2795; J3010; J3490; J7120